=== PATIENT | female | born 1995 | race African-American/Black ===

== ENCOUNTER 2022-01-30 18:20 | Emergency (ER) | payer OTHER ==
[2022-01-30] MEDS ORDERED: Ondansetron ODT 4 MG TAB ONE (19:54)
[2022-01-30 19:57] LABS: Bilirubin Neg (Negative); Blood, Urine 10 (Negative); Clarity Clear (Clear); Glucose, Urine (Dipstick) Normal (Negative); Ketone, Urine 5 mg/dL (Negative); Leukocyte 500 (Negative); Nitrite Negative (Negative); Protein, Urine (Dipstick) 500 mg/dl (Neg-Trace)
[2022-01-30 20:10] LABS: WBC/HPF 21-50 HPF (0-3)
[2022-01-30 20:12] LABS: Bacteria/HPF 2+ HPF (None Seen); Trichomonas/HPF 1+ HPF (None Seen)
[2022-01-30 20:13] LABS: Mucous/LPF 4+ LPF (<2+)
[2022-01-30 20:15] LABS: BHCG - Serum POSITIVE (NEGATIVE); Pregs Control Background? CLEAR/WHITE (CLR/WHITE); Pregs Control Bar Appear? YES (CONTROL BAR)
== END 2022-01-30 20:30 | disposition home or self-care (01) ==
LOC: CSHERS 18:20
DX: O23.41 Unspecified infection of urinary tract in pregnancy, first trimester (principal); N39.0 Urinary tract infection, site not specified
CPT/HCPCS: 36415; 81003; 81015; 84703; 99284; Q0162

== ENCOUNTER 2022-08-28 18:50 | Day surgery (SDC) | payer OTHER ==
[2022-08-28 19:09] VITALS: BMI 25.7
[2022-08-28 19:53] LABS: Fetal Membranes Rupture No Membranes Rupture (No Rupture)
[2022-08-28] MEDS ORDERED: hydrALAZINE 20 MG/ML VIAL SLOW IVP PRN (20:14)
== END 2022-08-28 20:30 | disposition home or self-care (01) ==
LOC: CSHLD/OP 18:50
PROVIDERS: ATTEND Obstetrics & Gynecology
DX: Z03.71 Encounter for suspected problem with amniotic cavity and membrane ruled out (principal); Z3A.36 36 weeks gestation of pregnancy
CPT/HCPCS: 84112; 99284